=== PATIENT | male | born 1955 | race Caucasian/White ===

== ENCOUNTER 2018-09-14 05:54 | Emergency (ER) | payer OTHER ==
[~2018-09-14] VITALS: Ht 170.2 cm; Wt 70.0 kg
[2018-09-14 06:42] LABS: CLARITY,URINE CLEAR (Clear); COLOR,URINE YELLOW (Yellow); GLUCOSE, URINE NEGATIVE (Neg); KETONES,URINE NEGATIVE (Neg); LEUKOCYTE ESTERASE ,URINE NEGATIVE (Neg); NITRITES, URINE NEGATIVE (Neg); OCCULT BLOOD,URINE MODERATE (Neg); PROTEIN,URINE NEGATIVE (Neg); UROBILINOGEN,URINE 0.2 E.U/dL (0.2-1.0)
[2018-09-14 06:53] LABS: UA COLLECTION TYPE FOLEY CATH
[2018-09-14 06:55] LABS: BACTERIA,URINE NONE SEEN /HPF (Neg); MUCUS STRANDS NONE SEEN /LPF (Neg); SQUAMOUS EPITHELIAL CELL,UR NONE SEEN /LPF (FEW); WBC,URINE NONE SEEN /HPF (0-4)
[2018-09-14 07:00] VITALS: BP 124/75
== END 2018-09-14 07:25 | disposition home or self-care (01) ==
LOC: ER 05:55
DX: R33.9 Retention of urine, unspecified (principal); R10.30 Lower abdominal pain, unspecified; Z88.1 Allergy status to other antibiotic agents
CPT/HCPCS: 51702; 81001; 99284

== ENCOUNTER 2018-09-17 17:46 | Emergency (ER) | payer OTHER ==
[~2018-09-17] VITALS: Ht 170.2 cm; Wt 72.7 kg
[2018-09-17 17:51] VITALS: BP 162/79
[2018-09-17] MEDS ORDERED: LIDOcaine 2% 10ml TOPICAL JELLY (Urojet) MM STA (19:00)
== END 2018-09-17 20:01 | disposition home or self-care (01) ==
LOC: ER 17:46
DX: R33.9 Retention of urine, unspecified (principal); Z88.1 Allergy status to other antibiotic agents; Z98.890 Other specified postprocedural states
CPT/HCPCS: 51702; 99284

== ENCOUNTER 2021-09-04 09:26 | Emergency (ER) | payer MEDICARE, BC ==
[2021-09-04] MEDS ORDERED: aspirin 81mg tab.chew PO ONE (09:35)
[2021-09-04] MEDS: nitroGLYCERIN 0.4mg SUBLingual tab SL PRN ×2 (09:46→10:35)
[2021-09-04] MEDS ORDERED: metoprolol tartrate 1mg/ml inj IV ONE (09:55)
[2021-09-04 10:01] LABS: BASOPHILS % (AUTO) 0.2 % (0-1); EOSINOPHILS # (AUTO) 0.1 X10'3 (0-0.9); EOSINOPHILS % (AUTO) 0.9 % (0-6); HEMATOCRIT 46.5 % (42.0-52.0); HEMOGLOBIN 16.2 g/dl (14.0-17.9); LYMPHOCYTES # (AUTO) 1.2 X10'3 (1.1-4.8); MEAN CORPUSCULAR HEMOGLOBIN 31.4 PG (27.0-31.0); MEAN CORPUSCULAR HGB CONC 34.8 g/dL (33.0-36.5); MEAN CORPUSCULAR VOLUME 90.2 FL (78-98); MEAN PLATELET VOLUME 6.9 FL (7.4-10.4); MONOCYTES # (AUTO) 0.6 X10'3 (0-0.9); MONOCYTES % (AUTO) 6.9 % (2-12); NEUTROPHILS # (AUTO) 6.8 X10'3 (1.8-7.7); PLATELET COUNT 268 X10'3 (140-440); RED BLOOD COUNT 5.15 X10'6 (4.70-6.10); WHITE BLOOD COUNT 8.8 X10'3 (4.5-11.0)
[2021-09-04 10:15] LABS: ALANINE AMINOTRANSFERASE 26 U/L (12-78); ALBUMIN 4.1 G/DL (3.4-5.0); ALBUMIN/GLOBULIN RATIO 1.2 (1.1-1.5); ALKALINE PHOSPHATASE 79 IU/L (46-116); ANION GAP 8 (8-16); ASPARTATE AMINO TRANSFERASE 15 U/L (10-37); BILIRUBIN,TOTAL 0.5 MG/DL (0.1-1.0); BLOOD UREA NITROGEN 17 MG/DL (7-18); BUN/CREATININE RATIO 16.3 (5.4-32.0); CALCIUM 9.5 MG/DL (8.5-10.1); CHLORIDE 102 MMOL/L (99-107); CREATININE 1.04 MG/DL (0.60-1.10); GLUCOSE 136 MG/DL (70-104); SODIUM 141 MMOL/L (135-145); TOTAL CARBON DIOXIDE 30.6 MMOL/L (24-32); TOTAL PROTEIN 7.6 G/DL (6.4-8.2); eGFR 72 ML/MIN
--- NOTE | 2021-09-04 10:36 | NUR ---
After Lopressor administration, patient reports continuous neck/arm pain. I update and ask provider for pain meds and he advises another Nitro. Patient is updated and I express patient's concern for lack of sleep due to the pain at night.
[2021-09-04] MEDS ORDERED: ondansetron/PF 4mg/2ml inj IV ONE (10:50)
[2021-09-04] MEDS ORDERED: morphine 4 MG/ML inj SYRINge IV PRN (10:50)
[2021-09-04] MEDS ORDERED: NAPR-56 PO (12:31)
[2021-09-04] MEDS ORDERED: HYDR-3965 PO (12:31)
[2021-09-04 12:33] VITALS: BP 155/93
[2021-09-04] MEDS ORDERED: ketorolac tromethamine 15mg/ml inj. IV ONE (12:35)
[2021-09-04 12:41] LABS: D-DIMER 0.27 MG/L FEU (0-0.50)
[2021-09-04 12:47] LABS: POTASSIUM 4.6 MMOL/L (3.5-5.1)
== END 2021-09-04 13:23 | disposition home or self-care (01) ==
LOC: ER 09:27
DX: I10 Essential (primary) hypertension (principal); Z20.822 Contact with and (suspected) exposure to COVID-19; R07.89 Other chest pain; M79.602 Pain in left arm; R00.0 Tachycardia, unspecified; Z85.9 Personal history of malignant neoplasm, unspecified; Z88.8 Allergy status to other drugs, medicaments and biological substances; Z79.899 Other long term (current) drug therapy
CPT/HCPCS: 36415; 71045; 80053; 83880; 84484; 85025; 85379; 87635; 93005; 96374; 96375; 99285; C9803; J2270; J2405; J3490

== ENCOUNTER 2023-10-24 19:38 | Observation (INO) | payer MEDICARE, BC ==
[~2023-10-24] VITALS: Ht 170.2 cm; Wt 70.0 kg
[2023-10-24 20:21] LABS: BASOPHILS % (AUTO) 0.4 % (0-1); EOSINOPHILS # (AUTO) 0.3 X10'3 (0-0.9); EOSINOPHILS % (AUTO) 2.9 % (0-6); HEMATOCRIT 41.5 % (42.0-52.0); HEMOGLOBIN 14.1 g/dl (14.0-17.9); LYMPHOCYTES # (AUTO) 2.2 X10'3 (1.1-4.8); LYMPHOCYTES % (AUTO) 24.2 % (21-51); MEAN CORPUSCULAR HEMOGLOBIN 32.1 PG (27.0-31.0); MEAN CORPUSCULAR HGB CONC 34.1 g/dL (33.0-36.5); MEAN CORPUSCULAR VOLUME 94.2 FL (78-98); MEAN PLATELET VOLUME 7.9 FL (7.4-10.4); MONOCYTES # (AUTO) 0.6 X10'3 (0-0.9); MONOCYTES % (AUTO) 6.7 % (2-12); NEUTROPHILS # (AUTO) 6.1 X10'3 (1.8-7.7); NEUTROPHILS % (AUTO) 65.8 % (42-75); PLATELET COUNT 277 X10'3 (140-440); RED CELL DISTRIBUTION WIDTH 12.6 % (11.5-14.5); WHITE BLOOD COUNT 9.3 X10'3 (4.5-11.0)
[2023-10-24 20:46] LABS: ALANINE AMINOTRANSFERASE 38 U/L (12-78); ALBUMIN 3.5 G/DL (3.4-5.0); ALKALINE PHOSPHATASE 98 IU/L (46-116); ANION GAP 7 (8-16); ASPARTATE AMINO TRANSFERASE 23 U/L (10-37); BILIRUBIN,TOTAL 0.4 MG/DL (0.1-1.0); BLOOD UREA NITROGEN 26 MG/DL (7-18); BUN/CREATININE RATIO 14.6 (10.0-20.0); CALCIUM 8.6 MG/DL (8.5-10.1); CHLORIDE 105 MMOL/L (99-107); CREATININE 1.78 MG/DL (0.60-1.10); GLUCOSE 146 MG/DL (70-104); POTASSIUM 4.5 MMOL/L (3.5-5.1); PRO BRAIN NATRIURETIC PEPTIDE 30 PG/ML (0-125); SODIUM 142 MMOL/L (135-145); TOTAL CARBON DIOXIDE 29.7 MMOL/L (24-32); TOTAL PROTEIN 7.1 G/DL (6.4-8.2); eCRCL 37 ML/MIN; eGFR 38 ML/MIN
[2023-10-25] MEDS: normal saline 1000ML IV soln IVB ONE ×2 (00:25→01:36)
[2023-10-25] MEDS ORDERED: potassium Cl 40MEQ/1/2NS 520ml 520 ML IV PRN (01:25)
[2023-10-25] MEDS ORDERED: potassium Cl 20 mEq SR tablet PO PRN ×2 (01:25)
[2023-10-25] MEDS ORDERED: magnesium 2GM in 50ml NS 50 ML IV PRN (01:25)
[2023-10-25] MEDS ORDERED: magnesium hydroxide 30ml (MOM) UD suspension PO PRN (01:25)
[2023-10-25] MEDS ORDERED: ondansetron/PF 4mg/2ml inj IV PRN (01:25)
[2023-10-25] MEDS ORDERED: magnesium Cl slow-release 64mg tablet PO PRN (01:25)
[2023-10-25] MEDS ORDERED: mag hydrox/Alum hydrox/simeth 30ml oral suspension PO PRN (01:25)
[2023-10-25] MEDS ORDERED: magnesium 4gm in 100ml NS 100 ML IV PRN (01:25)
[2023-10-25] MEDS ORDERED: acetaminophen 325mg tablet PO PRN (01:25)
[2023-10-25] MEDS: PERFLUTREN PROTEIN-A MICROSPHR (Optison) 0.22 MG/ML 3ML VIAL IV ONE (01:37)
[2023-10-25 01:49] LABS: HEMOGLOBIN A1C 5.5 % (4.5-6.2)
[2023-10-25 01:55] LABS: FREE T4 (FREE THYROXINE) 0.94 NG/DL (0.73-1.40); THYROID STIMULATING HORMONE 4.19 ulU/ml (0.34-4.50)
[2023-10-25] MEDS: normal saline 1000ml 1,000 ML IV SCH (05:17)
[2023-10-25 07:30] VITALS: BP 165/83; PULSE 65; RESP 13; TEMP 97.7; O2SAT 97
[2023-10-25] MEDS: K and/or MAG REPLACEMENT MC SCH (08:00)
[2023-10-25] MEDS: lisinopril 20mg tablet PO SCH (08:19)
[2023-10-25] MEDS: docusate sod 100mg capsule PO SCH (08:20)
[2023-10-25 09:05] LABS: BASOPHILS % (AUTO) 0.2 % (0-1); EOSINOPHILS # (AUTO) 0.1 X10'3 (0-0.9); EOSINOPHILS % (AUTO) 1.4 % (0-6); HEMATOCRIT 40.5 % (42.0-52.0); HEMOGLOBIN 13.9 g/dl (14.0-17.9); LYMPHOCYTES # (AUTO) 1.2 X10'3 (1.1-4.8); LYMPHOCYTES % (AUTO) 13.8 % (21-51); MEAN CORPUSCULAR HEMOGLOBIN 32.2 PG (27.0-31.0); MEAN CORPUSCULAR HGB CONC 34.3 g/dL (33.0-36.5); MEAN CORPUSCULAR VOLUME 93.8 FL (78-98); MEAN PLATELET VOLUME 7.9 FL (7.4-10.4); MONOCYTES # (AUTO) 0.6 X10'3 (0-0.9); MONOCYTES % (AUTO) 6.2 % (2-12); NEUTROPHILS % (AUTO) 78.4 % (42-75); PLATELET COUNT 262 X10'3 (140-440); RED BLOOD COUNT 4.32 X10'6 (4.70-6.10); RED CELL DISTRIBUTION WIDTH 12.6 % (11.5-14.5); WHITE BLOOD COUNT 8.9 X10'3 (4.5-11.0)
[2023-10-25 09:12] LABS: ALANINE AMINOTRANSFERASE 32 U/L (12-78); ALBUMIN 3.3 G/DL (3.4-5.0); ALKALINE PHOSPHATASE 70 IU/L (46-116); ANION GAP 7 (8-16); ASPARTATE AMINO TRANSFERASE 22 U/L (10-37); BILIRUBIN,TOTAL 0.6 MG/DL (0.1-1.0); BLOOD UREA NITROGEN 20 MG/DL (7-18); BUN/CREATININE RATIO 13.2 (10.0-20.0); CALCIUM 8.7 MG/DL (8.5-10.1); CHLORIDE 109 MMOL/L (99-107); CREATININE 1.51 MG/DL (0.60-1.10); GLUCOSE 96 MG/DL (70-104); POTASSIUM 4.7 MMOL/L (3.5-5.1); SODIUM 143 MMOL/L (135-145); TOTAL CARBON DIOXIDE 26.6 MMOL/L (24-32); TOTAL PROTEIN 6.5 G/DL (6.4-8.2); eCRCL 44 ML/MIN; eGFR 46 ML/MIN
[2023-10-25] MEDS ORDERED: hydrALAZINE 20mg/ml inj. IV PRN (09:45)
[2023-10-25] MEDS: amLODIPine 5mg tablet PO SCH (10:32)
[2023-10-25 11:00] VITALS: BP 131/65; PULSE 62; RESP 15; TEMP 97.9; O2SAT 98
[2023-10-25 12:20] VITALS: RESP 15
[2023-10-25] MEDS ORDERED: NOR5T PO (12:51)
[2023-10-25] MEDS ORDERED: LISI20TA28 PO (12:51)
== END 2023-10-25 13:35 | disposition home or self-care (01) ==
LOC: ER 19:38 → ED HOLD 10-25 01:27 → PCU 3S 10-25 07:20
PROVIDERS: ADMIT Internal Medicine Pulmonary Disease; ATTEND Internal Medicine
DX: R00.0 Tachycardia, unspecified (principal); R07.9 Chest pain, unspecified; I10 Essential (primary) hypertension; N17.9 Acute kidney failure, unspecified; E86.0 Dehydration; I49.3 Ventricular premature depolarization; Z85.46 Personal history of malignant neoplasm of prostate; Z86.2 Personal history of diseases of the blood and blood-forming organs and certain disorders involving the immune mechanism; Z79.899 Other long term (current) drug therapy
CPT/HCPCS: 36415; 71045; 80053; 83036; 83880; 84439; 84443; 84484; 85025; 87081; 93005; 93306; 93975; 96360; 96361; 99285; G0378; J7030